=== PATIENT | male | born 1965 | race Caucasian/White ===

== ENCOUNTER 2021-02-16 04:21 | Inpatient (IN) ==
[2021-02-16] MEDS ORDERED: GLUCAGON 1 MG VIAL IM PRN (05:21)
[2021-02-16] MEDS ORDERED: diphenhydrAMINE CAP 25 MG CAPSULE PO PRN (05:21)
[2021-02-16] MEDS ORDERED: NICOTINE 21 MG/24 HR PATCH TRANSDERM PRN (05:21)
[2021-02-16] MEDS ORDERED: hydrALAZINE 20 MG/1 ML VIAL IV PRN (05:21)
[2021-02-16] MEDS ORDERED: DEXTROSE 50% 25 GM/50 ML VIAL IV PRN (05:21)
[2021-02-16] MEDS ORDERED: guaiFENesin/DM ER 600-30 MG TABLET PO PRN (05:21)
[2021-02-16] MEDS ORDERED: ACETAMINOPHEN 325 MG TABLET PO PRN (05:21)
[2021-02-16] MEDS ORDERED: SODIUM CHLORIDE 0.9% 1,000 ML IV SCH (05:30)
[2021-02-16] MEDS: ONDANSETRON 4 MG/2 ML VIAL IV PRN (05:36)
[2021-02-16] MEDS: MORPHINE 2 MG/1 ML SYRINGE IV PRN ×3 (05:36→19:33)
[2021-02-16] MEDS: ALBUTEROL/IPRATROPIUM 3 ML NEB RESP TX SCH ×3 (06:42→21:00)
[2021-02-16 08:15] LABS: Basophils % 0.4 % (0.0-0.8); Eosinophils # 0.3 10*3/uL (0.0-0.87); Eosinophils % 2.7 % (0.00-10.9); Hematocrit 43.4 VOL% (42.0-52.0); Immature Granulocytes % 0.6 %; Immature Granulocytes Absolute 0.07 #; Lymphocytes # 2.7 10*3/uL (1.4-4.0); Lymphocytes % 23.7 % (21.2-54.2); Mean Corpuscular HGB Conc 32.3 GM/DL (32-36); Mean Corpuscular Volume 90.6 FL (87-102); Mean Platelet Volume 11.6 FL (9.6-12.0); Monocytes % 9.8 % (1.7-12.7); Neutrophils % 62.8 % (38.7-73.9); Platelet Count 161 T/CUMM (130-400); Red Blood Count 4.79 MC/CUMM (3.8-5.5); White Blood Count 11.3 T/CUMM (4-12)
[2021-02-16 08:38] LABS: Albumin 3.5 G/DL (3.4-5.0); Bilirubin,Total 0.7 MG/DL (0.20-1.00); Calcium 8.7 MG/DL (8.5-10.1); Osmolality,Calculated 281.5 MOS/KG (273-304); Potassium 3.8 MMOL/L (3.5-5.1); Total Protein 7.4 G/DL (6.4-8.2)
[2021-02-16] MEDS: OSELTAMIVIR 75 MG CAPSULE PO SCH ×2 (10:21→21:29)
[2021-02-16] MEDS: metroNIDAZOLE INJ 500 MG/100 ML PREMIX IV SCH ×3 (10:26→23:38)
[2021-02-16] MEDS: cefTRIAXone 1,000 MG in SODIUM CHLORIDE 0.9% 100 ML IV SCH (13:36)
[2021-02-17] MEDS: ALBUTEROL/IPRATROPIUM 3 ML NEB RESP TX SCH ×4 (01:34→19:54)
[2021-02-17 05:52] LABS: Basophils % 0.4 % (0.0-0.8); Eosinophils # 0.4 10*3/uL (0.0-0.87); Hematocrit 42.4 VOL% (42.0-52.0); Hemoglobin 13.6 GM/DL (14.0-18.0); Immature Granulocytes % 0.9 %; Immature Granulocytes Absolute 0.09 #; Lymphocytes # 2.2 10*3/uL (1.4-4.0); Lymphocytes % 21.4 % (21.2-54.2); Mean Corpuscular HGB Conc 32.1 GM/DL (32-36); Mean Corpuscular Volume 91.4 FL (87-102); Mean Platelet Volume 11.1 FL (9.6-12.0); Monocytes % 11.9 % (1.7-12.7); Neutrophils % 61.4 % (38.7-73.9); Platelet Count 148 T/CUMM (130-400); Red Blood Count 4.64 MC/CUMM (3.8-5.5); Red Cell Distribution Width 12.9 % (9.3-17.3)
[2021-02-17 06:13] LABS: Calcium 8.3 MG/DL (8.5-10.1); Osmolality,Calculated 276.7 MOS/KG (273-304); Potassium 4.8 MMOL/L (3.5-5.1)
[2021-02-17] MEDS: metroNIDAZOLE INJ 500 MG/100 ML PREMIX IV SCH ×2 (09:20→15:20)
[2021-02-17] MEDS: cefTRIAXone 1,000 MG in SODIUM CHLORIDE 0.9% 100 ML IV SCH (10:21)
[2021-02-17] MEDS: OSELTAMIVIR 75 MG CAPSULE PO SCH ×2 (10:21→21:16)
[2021-02-17] MEDS: MORPHINE 2 MG/1 ML SYRINGE IV PRN (13:07)
[2021-02-18] MEDS: metroNIDAZOLE INJ 500 MG/100 ML PREMIX IV SCH ×4 (00:02→23:14)
[2021-02-18] MEDS: MORPHINE 2 MG/1 ML SYRINGE IV PRN (00:04)
[2021-02-18] MEDS: ONDANSETRON 4 MG/2 ML VIAL IV PRN (00:29)
[2021-02-18] MEDS: ALBUTEROL/IPRATROPIUM 3 ML NEB RESP TX SCH ×3 (01:55→13:32)
[2021-02-18 05:48] LABS: Albumin 3.3 G/DL (3.4-5.0); Bilirubin,Total 0.7 MG/DL (0.20-1.00); Calcium 8.8 MG/DL (8.5-10.1); Osmolality,Calculated 275.7 MOS/KG (273-304); Potassium 4.3 MMOL/L (3.5-5.1); Total Protein 7.3 G/DL (6.4-8.2)
[2021-02-18] MEDS ORDERED: TISSUE ADHESIVE 1 EACH APPLICATOR TOP ONE (09:06)
[2021-02-18] MEDS ORDERED: BUPIVACAINE MPF 0.25% 30 ML VIAL ONE (09:06)
[2021-02-18] MEDS ORDERED: LIDOCAINE 1%/EPI INJ 20 ML VIAL ONE (09:07)
[2021-02-18] MEDS ORDERED: MIDAZOLAM 2 MG/2 ML VIAL ONE (10:31)
[2021-02-18] MEDS ORDERED: ONDANSETRON 4 MG/2 ML VIAL ONE (10:31)
[2021-02-18] MEDS ORDERED: LIDOCAINE 2% 5 ML VIAL ONE (10:31)
[2021-02-18] MEDS ORDERED: DEXAMETHASONE 4 MG/1 ML VIAL ONE (10:31)
[2021-02-18] MEDS ORDERED: ROCURONIUM 50 MG/5 ML VIAL IV ONE (10:31)
[2021-02-18] MEDS ORDERED: fentaNYL 100 MCG/2 ML VIAL ONE ×2 (10:31→11:10)
[2021-02-18] MEDS ORDERED: propofoL 200 MG/20 ML VIAL IV ONE ×2 (10:31→11:56)
[2021-02-18] MEDS ORDERED: SEVOFLURANE 1 UNIT/15 MINUTE INH ONE ×3 (10:31→11:10)
[2021-02-18] MEDS ORDERED: SUCCINYLCHOLINE 200 MG/10 ML VIAL ONE (10:31)
[2021-02-18] MEDS: cefTRIAXone 1,000 MG in SODIUM CHLORIDE 0.9% 100 ML IV SCH (10:40)
[2021-02-18] MEDS: OSELTAMIVIR 75 MG CAPSULE PO SCH ×2 (10:40→20:38)
[2021-02-18] MEDS ORDERED: NEOSTIGMINE 10 MG/10 ML VIAL ONE (12:04)
[2021-02-18] MEDS ORDERED: GLYCOPYRROLATE 0.4 MG/2 ML VIAL ONE (12:04)
[2021-02-18] MEDS ORDERED: HYDROmorphone 2 MG/1 ML VIAL ONE (12:08)
[2021-02-18] MEDS ORDERED: ONDANSETRON 4 MG/2 ML VIAL IV ONE (13:06)
[2021-02-18] MEDS ORDERED: ALBUTEROL/IPRATROPIUM 3 ML NEB RESP TX PRN (13:50)
[2021-02-18] MEDS ORDERED: BISACODYL 5 MG TABLET PO PRN (13:50)
[2021-02-18] MEDS ORDERED: HYDROmorphone 2 MG/1 ML VIAL IV PRN (13:50)
[2021-02-18] MEDS ORDERED: KETOROLAC 15 MG/1 ML VIAL IV PRN (13:50)
[2021-02-18] MEDS: HYDROmorphone 2 MG/1 ML VIAL IV PRN ×2 (15:58→20:38)
[2021-02-18] MEDS: DEXTROSE 5% NACL 0.45% 1,000 ML IV SCH ×2 (17:56→23:16)
[2021-02-19] MEDS: DEXTROSE 5% NACL 0.45% 1,000 ML IV SCH ×2 (03:10→10:07)
[2021-02-19 05:08] LABS: Basophils % 0.1 % (0.0-0.8); Hematocrit 41.5 VOL% (42.0-52.0); Hemoglobin 13.2 GM/DL (14.0-18.0); Immature Granulocytes % 0.7 %; Immature Granulocytes Absolute 0.09 #; Lymphocytes # 0.9 10*3/uL (1.4-4.0); Lymphocytes % 6.7 % (21.2-54.2); Mean Corpuscular HGB Conc 31.8 GM/DL (32-36); Mean Corpuscular Volume 91.8 FL (87-102); Mean Platelet Volume 11.3 FL (9.6-12.0); Monocytes % 10.5 % (1.7-12.7); Platelet Count 194 T/CUMM (130-400); Red Blood Count 4.52 MC/CUMM (3.8-5.5); Red Cell Distribution Width 12.7 % (9.3-17.3)
[2021-02-19 05:35] LABS: Albumin 3.2 G/DL (3.4-5.0); Bilirubin,Total 0.4 MG/DL (0.20-1.00); Calcium 8.6 MG/DL (8.5-10.1); Osmolality,Calculated 272.4 MOS/KG (273-304); Total Protein 7.3 G/DL (6.4-8.2)
[2021-02-19] MEDS ORDERED: PANTOPRAZOLE 40 MG TABLET PO SCH (09:00)
[2021-02-19] MEDS: OSELTAMIVIR 75 MG CAPSULE PO SCH (09:56)
[2021-02-19] MEDS: cefTRIAXone 1,000 MG in SODIUM CHLORIDE 0.9% 100 ML IV SCH (09:57)
[2021-02-19] MEDS: metroNIDAZOLE INJ 500 MG/100 ML PREMIX IV SCH (09:57)
[2021-02-19 11:21] VITALS: BP 130/85
[2021-02-19] MEDS: HYDROmorphone 2 MG/1 ML VIAL IV PRN (12:08)
== END 2021-02-19 13:26 | disposition home or self-care (01) | DRG 419 ==
LOC: EDUNIT# → EDBD → N.ED 04:21 → SUATTDRO 05:21 → N.EDINP 05:21 → N.3E 07:09
PROVIDERS: ADMIT Internal Medicine; ATTEND Internal Medicine
PROC: LAPCHOL (2021-02-18 10:46)